=== PATIENT | female | born 1960 ===

== ENCOUNTER 2018-08-04 06:59 | Inpatient (IN) | payer BC, OTHER ==
[2018-08-04] MEDS ORDERED: Sodium Chloride 0.9% 1,000 ML IV STA (07:42)
--- NOTE | 2018-08-04 07:56 | ED PDOC ---
Arrival/HPI <James Giraldo - Last Filed: 08/04/18 08:48> - General Historian: Patient - History of Present Illness Narrative History of Present Illness (Text): Patient is a 58 yr old female with PMH HTN who presents today [place] [facility] having 3 large bloody BMs this morning. She states that she has had instances in the past where there was a small amount of blood on the tiolet paper but states that this time there was a large amount of blood and that the blood was the major component of the BM. She states that at the time of the BM she became dizzy/lightheaded and diaphoretic. She states that she has felt dizzy and slightly nauseous since that time but has had no emesis. She additionally states that she has been under an increased amount of stress lately due to her son's psychiatric care. she otherwise denies MENA, CP, SOB, abdominal pain, vomiting, pain with defecation, dysuria and exrtemity pain/weakness. Patient denies ever having had a colonoscopy. PCP: Dr. Ivory Burt 08/04/18 07:44 Time/Duration: Prior to Arrival, 1-3 hours Symptom Onset: Sudden Symptom Course: Unchanged Severity Level: Moderate <Mireille Whitley - Last Filed: 08/04/18 19:14> - General Chief Complaint: GI Problem Time Seen by Provider: 08/04/18 07:14 Past Medical History - Provider Review Nursing Documentation Reviewed: Yes - Infectious Disease Hx of Infectious Diseases: None - Reproductive Menopause: No - Cardiac Hx Cardiac Disorders: Yes Hx Hypertension: Yes - Pulmonary Hx Respiratory Disorders: No - Neurological Hx Neurological Disorder: No - HEENT Hx HEENT Disorder: No - Renal Hx Renal Disorder: No - Endocrine/Metabolic Hx Endocrine Disorders: No - Hematological/Oncological Hx Blood Disorders: No - Integumentary Hx Dermatological Disorder: No - Musculoskeletal/Rheumatological Hx Musculoskeletal Disorders: No - Gastrointestinal Hx Gastrointestinal Disorders: No - Genitourinary/Gynecological Hx Genitourinary Disorders: No - Psychiatric Hx Psychophysiologic Disorder: No Hx Substance Use: No - Surgical History Hx Section: Yes - Anesthesia Hx Anesthesia: Yes Hx Anesthesia Reactions: No Hx Malignant Hyperthermia: No <Mireille Whitley - Last Filed: 08/04/18 19:14> Family/Social History - Physician Review Nursing Documentation Reviewed: Yes Family/Social History: Unknown Family HX Smoking Status: Never Smoked Hx Alcohol Use: No Hx Substance Use: No <Mireille Whitley - Last Filed: 08/04/18 19:14> Allergies/Home Meds <James Giraldo - Last Filed: 08/04/18 08:48> <Mireille Whitley - Last Filed: 08/04/18 19:14> Allergies/Adverse Reactions: Allergies lactose Allergy (Verified 08/04/18 07:12) URTICARIA Penicillins Allergy (Verified 08/04/18 07:12) SWELLING Home Medications: Home Meds Medication Instructions Recorded Confirmed amLODIPine [Norvasc] 10 mg PO DAILY 08/04/18 08/04/18 Review of Systems - Physician Review All systems were reviewed & negative as marked: Yes - Review of Systems Constitutional: Fatigue. absent: Fevers Respiratory: absent: SOB, Cough Cardiovascular: Palpitations. absent: Chest Pain, Syncope Gastrointestinal: Stool Changes, Nausea, Hematochezia. absent: Abdominal Pain, Vomiting, Hematemesis Genitourinary Female: absent: Dysuria Musculoskeletal: absent: Arthralgias, Back Pain Skin: absent: Rash, Skin Lesions Neurological: Dizziness. absent: Headache, Focal Weakness, Speech Changes Endocrine: Diaphoresis <Mireille Whitley - Last Filed: 08/04/18 19:14> Physical Exam Vital Signs Temp Pulse Resp BP Pulse Ox 08/04/18 07:26 98.1 F 94 H 18 111/71 98 <James Giraldo - Last Filed: 08/04/18 08:48> Vital Signs Reviewed: Yes Vital Signs Temp Pulse Resp BP Pulse Ox 08/04/18 07:26 98.1 F 94 H 18 111/71 98 Temperature: Afebrile Blood Pressure: Normal Pulse: Tachycardic Respiratory Rate: Normal Appearance: Positive for: Well-Appearing, Non-Toxic, Comfortable Pain Distress: Mild Mental Status: Positive for: Alert and Oriented X 3 - Systems Exam Head: Present: Atraumatic, Normocephalic Extroacular Muscles: Present: EOMI Mouth: Present: Moist Mucous Membranes Neck: Present: Normal Range of Motion Respiratory/Chest: Present: Clear to Auscultation, Good Air Exchange. No: Accessory Muscle Use Cardiovascular: Present: Normal S1, S2, Tachycardic. No: Murmurs Abdomen: No: Tenderness, Distention, Peritoneal Signs, Guarding Rectal: Present: Occult Blood, Gross Blood, Normal Rectal Tone. No: Rectal Tenderness, Melena, Hemorrhoids, Fissures, Nodule/Mass/Lesions Upper Extremity: Present: Normal Inspection, NORMAL PULSES. No: Cyanosis Lower Extremity: Present: Normal Inspection, NORMAL PULSES. No: Edema, CALF TENDERNESS Neurological: Present: GCS=15, CN II-XII Intact, Speech Normal Skin: Present: Warm, Dry, Normal Color. No: Rashes, Diaphoretic, Pale Psychiatric: Present: Alert, Oriented x 3, Normal Insight, Normal Concentration <Mireille Whitley - Last Filed: 08/04/18 19:14> Medical Decision Making ED Course and Treatment: 08/04/18 08:48 Impression: 58 yr old female with PMH HTN who presents today to [facility] [place] having 3 large bloody BMs this morning In agreement with resident note which contains more details about the patient. Patient seen and evaluated with resident. Came up with plan and treatment together. Plan: -- Labs -- CT Abdomen and Pelvis -- EKG - Lab Interpretations Lab Results: Total Bilirubin 0.3 mg/dL (0.2-1.3) 08/04/18 07:50 AST 35 U/L (14-36) 08/04/18 07:50 ALT 35 U/L (7-56) 08/04/18 07:50 Alkaline Phosphatase 84 U/L (38-126) 08/04/18 07:50 Total Protein 7.7 g/dL (5.8-8.3) 08/04/18 07:50 Albumin 4.2 g/dL (3.0-4.8) 08/04/18 07:50 Globulin 3.5 gm/dL 08/04/18 07:50 Albumin/Globulin Ratio 1.2 (1.1-1.8) 08/04/18 07:50 - RAD Interpretation Radiology Orders: 08/04/18 08:33 ABD PELVIS PO & IV CONTRAST [CT] Stat - EKG Interpretation EKG Interpretation (Text): 08/04/18 08:37 0832: nsr at 87 bpm, nml qrs, nml axis, no acute sttw abn Interpreted by ED Physician: Yes - Medication Orders Current Medication Orders: Sodium Chloride (Sodium Chloride 0.9%) 1,000 mls @ 999 mls/hr IV .Q1H1M STA Stop: 08/04/18 08:42 Last Admin: 08/04/18 07:58 Dose: 999 mls/hr eMAR Start Stop Document 08/04/18 07:58 KORIN (Rec: 08/04/18 07:59 KORIN [id number]) Intravenous Solution Start Date 08/04/18 Start Time 07:58 End Date 08/04/18 End time 08:58 Total Infusion Time 60 <James Giraldo - Last Filed: 08/04/18 08:48> ED Course and Treatment: Impression: 58 yr old female with PMH HTN with new onset Rectal bleed (hemeoccult positive) Plan: CBC CMP IVF bolus 1L reassess and dispo 08/04/18 08:[address] Chance who agrees to evaluate the patient and admit to the hospital for further care. he requested Dr. Espinal for ID, Dr. Saha for GI and Dr. Villalba for surgical consult As patient has PCN allergy she has been placed on aztreonam, flagyl and vancomycin 08/04/18 11:55 - Medication Orders Current Medication Orders: Sodium Chloride (Sodium Chloride 0.9%) 1,000 mls @ 999 mls/hr IV .Q1H1M STA Stop: 08/04/18 08:42 <Mireille Whitley - Last Filed: 08/04/18 19:14> - PA / INSURANCE FOLLOW UP REP / Resident Statement MD/DO has reviewed & agrees with the documentation as recorded. - Scribe Statement The provider has reviewed the documentation as recorded by the Scribe Erich Beth All medical record entries made by the Scribe were at my direction and personally dictated by me. I have reviewed the chart and agree that the record accurately reflects my personal performance of the history, physical exam, medical decision making, and the department course for this patient. I have also personally directed, reviewed, and agree with the discharge instructions and disposition. <James Giraldo - Last Filed: 08/04/18 08:48> Disposition/Present on Arrival <James Giraldo - Last Filed: 08/04/18 08:48> - Present on Arrival Any Indicators Present on Arrival: No History of DVT/PE: No History of Uncontrolled Diabetes: No Urinary Catheter: No History of Decub. Ulcer: No History Surgical Site Infection Following: None - Disposition Have Diagnosis and Disposition been Completed?: Yes Disposition Time: 11:55 Patient Plan: Admission <Mireille Whitley - Last Filed: 08/04/18 19:14> - Disposition Diagnosis: Diverticulitis large intestine, GI bleed Disposition: HOSPITALIZED Condition: STABLE
[2018-08-04 08:03] LABS: BASO # 0.04 K/mm3 (0.0-2.0); BASO % 0.3 % (0.0-3.0); EOS # 0.1 (0.0-0.7); EOS % 0.5 % (1.5-5.0); HEMOGLOBIN 11.1 g/dL (12.0-16.0); LYMPH # 2.4 (1.2-3.4); LYMPH % 16.6 % (22.0-35.0); MEAN CELL VOLUME 77.7 fl (80.0-105.0); MEAN CORPUSCULAR HEMOGLOBIN 25.2 pg (25.0-35.0); MEAN CORPUSCULAR HGB CONC 32.5 g/dl (31.0-37.0); MEAN PLATELET VOLUME 10.3 fl (7.0-11.0); MONO # 0.5 (0.1-0.6); MONO % 3.3 % (1.0-6.0); RBC 4.4 10^6/uL (3.5-6.1); RED CELL DISTRIBUTION WIDTH 14.2 % (11.5-14.5); WHITE BLOOD COUNT 14.7 10^3/uL (4.5-11.0)
[2018-08-04 08:24] LABS: ALB/GLOB RATIO 1.2 (1.1-1.8); ALBUMIN 4.2 g/dL (3.0-4.8); ALT/SGPT 35 U/L (7-56); AST/SGOT 35 U/L (14-36); BLOOD UREA NITROGEN 11 mg/dL (7-21); CALCIUM 8.9 mg/dL (8.4-10.5); GFR NON-AFRICAN AMERICAN > 60
[2018-08-04] MEDS ORDERED: Iohexol 350 MG/100 ML VIAL ONE (08:51)
[2018-08-04] MEDS ORDERED: Iohexol 240 (50 ml) ONE (08:51)
[2018-08-04 09:13] LABS: INR 1.14; PARTIAL THROMBOPLASTIN TIME 35.6 Seconds (26.9-38.3); PROTHROMBIN TIME 12.9 SECONDS (9.4-12.5)
--- NOTE | 2018-08-04 11:47 | CT ---
Date of service: 08/04/2018 PROCEDURE: CT Abdomen and Pelvis with contrast HISTORY: r/o dicerticulitis, rectal bleeding COMPARISON: Comparison is made with the previous ultrasound dated 09/06/2015 TECHNIQUE: Contrast dose: 96 mL of Omnipaque 240 was injected intravenously. Axial and reformatted coronal and sagittal CT images of the abdomen and pelvis were obtained after IV and oral contrast administration Radiation dose: Total exam DLP = 266.52 mGy-cm. This CT exam was performed using one or more of the following dose reduction techniques: Automated exposure control, adjustment of the mA and/or kV according to patient size, and/or use of iterative reconstruction technique. FINDINGS: LOWER THORAX: 8 millimeter calcified nodule at the right lung lower lobe noted likely calcified granuloma. No evidence of pneumonia or pleural effusion. LIVER: Slightly heterogeneous enhancement of the liver noted. No evidence of enhancing mass lesion. The portal vein is patent. GALLBLADDER AND BILE DUCTS: The gallbladder is mildly distended demonstrate mild diffuse wall thickening. PANCREAS: Unremarkable. No gross lesion or ductal dilatation. SPLEEN: Unremarkable. ADRENALS: Unremarkable. No mass. KIDNEYS AND URETERS: Unremarkable. No hydronephrosis. No solid mass. VASCULATURE: Unremarkable. No aortic aneurysm. Small foci of atherosclerotic calcification noted in the abdominal aorta. BOWEL: There is focal thickening in the proximal ascending colon surrounding with inflammatory changes. Findings may represent diverticulitis versus focal colitis or neoplasm with microperforation. Suspicious for descending and sigmoid colon wall thickening that likely represent colitis. APPENDIX: There is no evidence of appendicitis. PERITONEUM: Unremarkable. No free fluid. No free air. LYMPH NODES: Unremarkable. No enlarged lymph nodes. BLADDER: Unremarkable. REPRODUCTIVE: The uterus is slightly prominent in size demonstrate mild heterogeneous enhancement. There is heterogeneous slightly high attenuation lesion at the left adnexa measures 2 centimeter. BONES: No acute fracture. OTHER FINDINGS: None. IMPRESSION: Focal wall thickening in the proximal ascending colon surrounding with heterogeneous mesenteric stranding and inflammatory changes. The differential consideration includes diverticulitis versus colitis or neoplasm with micro perforation. Further evaluation and follow-up reassessment is recommended. Left colon wall thickening consistent with colitis. High attenuation 2 centimeter lesion in the left adnexa. Follow-up non emergent ultrasound of the pelvis is suggested to exclude solid adnexal neoplasm.
[2018-08-04] MEDS ORDERED: metroNIDAZOLE IV 500 mg/100 ml 500 MG/100 ML BAG IVPB STA (11:54)
[2018-08-04] MEDS ORDERED: Vancomycin 500 mg Inj IVPB STA (11:58)
[2018-08-04] MEDS ORDERED: Aztreonam 2 Gm in NS 100mL 100 ML IVPB STA (12:00)
[2018-08-04] MEDS ORDERED: Sodium Chloride 0.9% 1,000 ML IV SCH (12:15)
[2018-08-04] MEDS ORDERED: Vancomycin 1gm in NS 250ml 1 GM/250 ML BAG IVPB ONE (12:15)
[2018-08-04 15:20] VITALS: BMI 24.0
--- NOTE | 2018-08-04 16:28 | CON ---
DATE OF CONSULTATION: 08/04/2018 The patient is seen earlier in the emergency room and will be transferred to Room 573, Bed 2. CHIEF COMPLAINT: Bright red blood per rectum x1 day duration. HISTORY OF PRESENT ILLNESS: This is a 58-year-old female with a history of hypertension, who was admitted with bright red blood per rectum and found to have leukocytosis. Infectious disease consultation requested. The patient has mild abdominal discomfort and nausea, but no vomiting, no fevers, and no chills. She did have an episode of chills earlier. No dysuria or frequency. No cough, no headaches, no back pain, no rash, no joint pain. PAST MEDICAL HISTORY: Significant for hypertension. PAST SURGICAL HISTORY: Significant for . MEDICATIONS AT HOME: Include the patient to be on Norvasc. ALLERGIES: THE PATIENT IS ALLERGIC TO PENICILLIN. SHE IS NOT QUITE SURE WHAT HAPPENED. SHE THINKS SHE MAY HAVE HAD FELT PALPITATIONS, QUESTIONABLE RASH. REVIEW OF SYSTEMS: A 12-point review of systems is performed. PHYSICAL EXAMINATION: GENERAL: She is in bed. VITAL SIGNS: Temperature of 98.8, heart rate is 94, respiratory rate of 18, blood pressure is 111/70. HEENT: Unremarkable. NECK: Supple. LUNGS: Have decreased breath sounds. HEART: Normal S1 and S2. ABDOMEN: Soft, nontender. No rebound or guarding. LABORATORY EXAMINATION: White count of 14,000, hemoglobin 11, MCV is low at 77, and coagulation is noted. Chemistries reveal a BUN of 11 and creatinine of 0.6. Microbiology is pending. The patient had a CAT scan, which showed possible diverticulitis versus colitis, inflammatory findings. The patient had an EKG, the results are not available. ASSESSMENT/PLAN: The patient is a 58-year-old female with tachycardia, leukocytosis, bright red blood per rectum, CT finding with colitis and/or diverticulitis. #1 is sepsis with diverticulitis versus colitis. We will treat the patient with vanco, Azactam, and Flagyl. The patient has a questionable allergy to penicillin. We will check on the cultures. We will order an HIV because of her age. We will follow with you. Case discussed with PMD. Chet Espinal MD [facility] # [id number]
[2018-08-04] MEDS: Vancomycin 1gm in NS 250ml 1 GM/250 ML BAG IVPB SCH (16:41)
[2018-08-04] MEDS: Sodium Chloride 0.9% 1,000 ML IV SCH (16:49)
--- NOTE | 2018-08-04 18:07 | CP.PCM.CON ---
History of Present Illness - History of Present Illness History of Present Illness: Surgery Consult for colitis, diverticulitis Patient is a 58 yr old female with PMH HTN who presents today to [facility] [place] after having 3 large bloody BMs this morning. She states that she has had instances in the past where there was a small amount of blood on the toilet paper but states that this time there was a large amount of blood and that the blood was the major component of the BM. There was blood in the toilet bowl. She states that at the time of the BM she became dizzy/lightheaded and diaphoretic. She states that she has felt dizzy and slightly nauseous since that time but has had no emesis. She additionally states that she has been under an increased amount of stress lately due to her son's psychiatric care. she otherwise denies MENA, CP, SOB, abdominal pain, vomiting, pain with defecation, dysuria and exrtemity pain/weakness. Patient denies ever having had a colonoscopy. Pt also reports R side abd pain. This is the first time having these sxs. 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 Review of Systems - Review of Systems Review of Systems: See HP I Past Patient History - Infectious Disease Hx of Infectious Diseases: None - Past Social History Smoking Status: Former Smoker - CARDIAC Hx Cardiac Disorders: Yes Hx Hypertension: Yes - PULMONARY Hx Respiratory Disorders: No - NEUROLOGICAL Hx Neurological Disorder: No - HEENT Hx HEENT Problems: No - RENAL Hx Chronic Kidney Disease: No - ENDOCRINE/METABOLIC Hx Endocrine Disorders: No - HEMATOLOGICAL/ONCOLOGICAL Hx Blood Disorders: No - INTEGUMENTARY Hx Dermatological Problems: No - MUSCULOSKELETAL/RHEUMATOLOGICAL Hx Falls: No - GASTROINTESTINAL Hx Gastrointestinal Disorders: No - GENITOURINARY/GYNECOLOGICAL Hx Genitourinary Disorders: No - PSYCHIATRIC Hx Psychophysiologic Disorder: No - SURGICAL HISTORY Hx Surgeries: Yes - ANESTHESIA Hx Anesthesia: Yes Hx Anesthesia Reactions: No Hx Malignant Hyperthermia: No Meds Allergies/Adverse Reactions: Allergies Allergy/AdvReac Type Severity Reaction Status Date / Time lactose Allergy URTICARIA Verified 08/04/18 07:12 Penicillins Allergy SWELLING Verified 08/04/18 07:12 - Medications Medications: Current Medications Sodium Chloride (Sodium Chloride 0.9%) 1,000 mls @ 80 mls/hr IV .[id number] [facility] Last Admin: 08/04/18 16:49 Dose: 80 mls/hr Aztreonam (Azactam 1 Gm) 100 mls @ 100 mls/hr IVPB Q8 AUBREY; Protocol Stop: 08/09/18 22:01 Metronidazole (Flagyl) 500 mg in 100 mls @ 100 mls/hr IVPB Q8 AUBREY; Protocol Stop: 08/13/18 22:01 Vancomycin HCl (Vancomycin 1gm) 1 gm in 250 mls @ 167 mls/hr IVPB Q12H AUBREY; Protocol Stop: 08/13/18 15:16 Last Admin: 08/04/18 16:41 Dose: 167 mls/hr Pantoprazole Sodium (Protonix Inj) 40 mg IVP Q12 AUBREY Physical Exam - Constitutional Appears: No Acute Distress - Head Exam Head Exam: ATRAUMATIC, NORMAL INSPECTION, NORMOCEPHALIC - Eye Exam Eye Exam: EOMI, Normal appearance, PERRL Pupil Exam: NORMAL ACCOMODATION, PERRL - ENT Exam ENT Exam: Mucous Membranes Moist, Normal Exam - Neck Exam Neck exam: Positive for: Normal Inspection - Respiratory Exam Respiratory Exam: NORMAL BREATHING PATTERN - Cardiovascular Exam Cardiovascular Exam: REGULAR RHYTHM - GI/Abdominal Exam GI & Abdominal Exam: Soft, Tenderness. absent: Distended, Firm, Guarding, Hernia, Rigid Additional comments: R abd ttp - Extremities Exam Extremities exam: Positive for: normal inspection - Back Exam Back exam: NORMAL INSPECTION - Neurological Exam Neurological exam: Alert, CN II-XII Intact, Normal Gait, Oriented x3, Reflexes Normal - Psychiatric Exam Psychiatric exam: Normal Affect, Normal Mood - Skin Skin Exam: Dry, Intact, Normal Color, Warm Results - Vital Signs Recent Vital Signs: Last Vital Signs Temp 98.8 F 08/04/18 14:30 Pulse 80 08/04/18 14:30 Resp 18 08/04/18 15:20 BP 124/76 08/04/18 14:30 Pulse Ox 99 08/04/18 14:30 - Labs Result Diagrams: 08/04/18 07:50 08/04/18 07:50 Labs: Laboratory Results - last 24 hr 08/04/18 08/04/18 08/04/18 07:50 07:50 07:50 WBC 14.7 H RBC 4.40 Hgb 11.1 L Hct 34.2 L MCV 77.7 L MCH 25.2 MCHC 32.5 RDW 14.2 Plt Count 348 MPV 10.3 Neut % (Auto) 79.3 H Lymph % (Auto) 16.6 L [place] % (Auto) 3.3 Eos % (Auto) 0.5 L Baso % (Auto) 0.3 Lymph # (Auto) 2.4 [place] # (Auto) 0.5 Eos # (Auto) 0.1 Baso # (Auto) 0.04 Absolute Neuts (auto) 11.64 H PT 12.9 H INR 1.14 APTT 35.6 Sodium 137 Potassium 3.5 L Chloride 101 Carbon Dioxide 27 Anion Gap 13 BUN 11 Creatinine 0.6 L Est GFR ( Amer) > 60 Est GFR (Non-Af Amer) > 60 Random Glucose 109 Calcium 8.9 Phosphorus 4.0 Magnesium 2.1 Total Bilirubin 0.3 AST 35 ALT 35 Alkaline Phosphatase 84 Total Protein 7.7 Albumin 4.2 Globulin 3.5 Albumin/Globulin Ratio 1.2 Blood Type Antibody Screen BBK History Checked 08/04/18 08:15 WBC RBC Hgb Hct MCV MCH MCHC RDW Plt Count MPV Neut % (Auto) Lymph % (Auto) [place] % (Auto) Eos % (Auto) Baso % (Auto) Lymph # (Auto) [place] # (Auto) Eos # (Auto) Baso # (Auto) Absolute Neuts (auto) PT INR APTT Sodium Potassium Chloride Carbon Dioxide Anion Gap BUN Creatinine Est GFR ( Amer) Est GFR (Non-Af Amer) Random Glucose Calcium Phosphorus Magnesium Total Bilirubin AST ALT Alkaline Phosphatase Total Protein Albumin Globulin Albumin/Globulin Ratio Blood Type A POSITIVE Antibody Screen Negative BBK History Checked Patient has bt Assessment & Plan - Assessment and Plan (Free Text) Assessment: Colitis v diverticulitis Leukocytosis CT: R colon colitis w diverticulosis -NPO -IVF-PTX -ABX -Pain control Pt seen w and case DW Dr. Villalba
[2018-08-04] MEDS ORDERED: metroNIDAZOLE IV 500 mg/100 ml 500 MG/100 ML BAG IVPB SCH (22:00)
[2018-08-04] MEDS ORDERED: Ciprofloxacin 200mg/100ml D5W 100 ML IVPB SCH (22:00)
--- NOTE | 2018-08-04 22:51 | HP ---
DATE OF EXAM: 08/04/2018 HISTORY OF PRESENT ILLNESS: I saw her in the emergency room. She is a 58-year-old female who presents with three large bloody bowel movements. She had in the past with a small blood on toilet paper. She became a little dizzy, lightheaded, sweaty, nauseous, but not throwing up. Increase in stress lately to her son's psychiatric care. She has been eating a lot to spicy foods also lately. Never had a colonoscopy in the past. PAST MEDICAL HISTORY: Hypertension, on Norvasc. Her primary care doctor would come to the hospital. She has had a in the past. FAMILY HISTORY: Unknown family history. SOCIAL HISTORY: No smoking. No drinking. No drugs. ALLERGIES: LACTULOSE AND PENICILLIN. MEDICATIONS: She is on amlodipine 10 mg a day, her blood pressure is low. I am not going to start her up on it today, maybe tomorrow. REVIEW OF SYSTEMS: She is tired. No shortness of breath or cough. No chest pain. There are palpitations. Stool changes. She is nauseous, hematochezia, blood in the stool, not throwing up. No problems urinating. No back pains. No skin lesions or rashes that she knows of. PHYSICAL EXAMINATION: GENERAL: She is little bit dizzy and lightheaded. She is sweaty. She is alert and oriented x3, little uncomfortable, worried, well appearing. VITAL SIGNS: 98.1 temperature, 94 pulse, 18 respiratory rate, 111/71 blood pressure, 98% O2 sat on room air. HEENT: Head: Atraumatic, normocephalic. Extraocular muscles are intact. Pupils equal, react to light and accommodation. Throat is moist. NECK: Supple. HEART: Regular rate. Normal S1, S2. LUNGS: Decreased breath sounds bilaterally, but clear to auscultation. No wheezes, no rhonchi, no rales. ABDOMEN: There is no tenderness. High-pitched bowel sounds. No guarding, no rebound, no CVA tenderness. She has had some lower abdominal tenderness, not now. Has occult blood, was gross blood in the rectum in the ER. EXTREMITIES: No edema or calf tenderness of extremities. NEUROLOGIC: GCS is 15. Cranial nerves II-XII grossly intact. Alert and oriented x3. SKIN: Warm and dry. No apparent rashes or ulcers. LYMPHS: No palpable appreciable lymphadenopathy in the cervical area. LABORATORY DATA: She had 137 sodium and potassium 3.5, we gave her K rider. BUN 11, creatinine 0.6, GFR greater than 60, sugar is 109, calcium is 8.9, phosphorus 4, magnesium 2.1, total bili is 0.3. AST is 35, ALT is 35, alk phos 84, total protein 7.7, albumin is 4.2, and 1.14 INR. White count 14.7, 11.1 hemoglobin, 34.2 hematocrit with 77.7 MCV and 348 platelets. She has a CT scan of the abdomen and pelvis which showed focal wall thickening in the proximal ascending colon surrounding with heterogenous mesenteric stranding with inflammatory changes. The differential considering is diverticulitis versus colitis or neoplasm with microperforation. Left colon wall thickening consistent with colitis, possible left adnexal mass. I will get ultrasound. She will have consults with GI, Surgery and Infectious Disease. She will be on antibiotics. We will watch her labs. She will be n.p.o., IV fluids, IV antibiotics. We will continue aggressive treatment and care on Christy Matias. Tamir Chance DO MTDJosiah
--- NOTE | 2018-08-04 22:55 | CARD ---
APPROVED REPORT Date of service: 08/04/2018 EKG Measurement Heart [id number] <Conclusion> Normal sinus rhythm Nonspecific T wave abnormality Abnormal ECG
[2018-08-04] MEDS: metroNIDAZOLE IV 500 mg/100 ml 500 MG/100 ML BAG IVPB SCH (23:13)
[2018-08-05] MEDS: Aztreonam 1 Gm in NS 100mL 100 ML IVPB SCH ×4 (00:55→21:17)
[2018-08-05] MEDS: Vancomycin 1gm in NS 250ml 1 GM/250 ML BAG IVPB SCH ×2 (03:14→17:57)
[2018-08-05] MEDS: metroNIDAZOLE IV 500 mg/100 ml 500 MG/100 ML BAG IVPB SCH ×3 (05:09→21:17)
--- NOTE | 2018-08-05 07:24 | CP.PCM.CON ---
<Pepe Pan - Last Filed: 08/05/18 09:36> History of Present Illness - History of Present Illness History of Present Illness: PGY-4 GI Fellow Consult Note Pt is a 58 yo Female with HTN presenting with complaint of bright red blood per rectum. She states she was in her normal state of health in the the AM of 08/04 when she went to defecate but loose brown stool with bright red blood came out. She reports 3 episodes of elizabeth blood. She states that she previously would have some small amounts of blood when she would have a hard time defecating, but states that this was much more than she has ever had before. She reports some associated nausea, lightheadedness, dizziness. She reports some bloating/gas discomfort which is not unusual for her; denied any new significant abd pain. She denied any F/C, syncope, CP, SOB, emesis, dysphagia, weight loss nor family h/o CRC. She denied any change in diet, raw meat consumption, travel or antibiotic exposure. She does report some increased stress in her life related to her son who is working though mental illness. She states that she had EGD some 10+ years ago for abd pain eval which was normal per her report; no prior Colonoscopy. 12 point ROS negative other than stated above MHx: HTN SurgHx: C section, lap co pilot procedure Meds: Reviewed in chart FamHx: Sister with cervical CA; denied CRC/GI problems SocHx: Denied x3 All: Lactose, PCN - rash Past Patient History - Infectious Disease Hx of Infectious Diseases: None - Past Social History Smoking Status: Never Smoked - CARDIAC Hx Cardiac Disorders: Yes Hx Hypertension: Yes - PULMONARY Hx Respiratory Disorders: No - NEUROLOGICAL Hx Neurological Disorder: No - HEENT Hx HEENT Problems: No - RENAL Hx Chronic Kidney Disease: No - ENDOCRINE/METABOLIC Hx Endocrine Disorders: No - HEMATOLOGICAL/ONCOLOGICAL Hx Blood Disorders: No - INTEGUMENTARY Hx Dermatological Problems: No - MUSCULOSKELETAL/RHEUMATOLOGICAL Hx Musculoskeletal Disorders: No - GASTROINTESTINAL Hx Gastrointestinal Disorders: No - GENITOURINARY/GYNECOLOGICAL Hx Genitourinary Disorders: No - PSYCHIATRIC Hx Psychophysiologic Disorder: No Hx Substance Use: No - SURGICAL HISTORY Hx Section: Yes - ANESTHESIA Hx Anesthesia: Yes Hx Anesthesia Reactions: No Hx Malignant Hyperthermia: No Meds Allergies/Adverse Reactions: Allergies Allergy/AdvReac Type Severity Reaction Status Date / Time lactose Allergy URTICARIA Verified 08/04/18 07:12 Penicillins Allergy SWELLING Verified 08/04/18 07:12 - Medications Medications: Current Medications Sodium Chloride (Sodium Chloride 0.9%) 1,000 mls @ 80 mls/hr IV .[id number] [facility] Last Admin: 08/04/18 16:49 Dose: 80 mls/hr Aztreonam (Azactam 1 Gm) 100 mls @ 100 mls/hr IVPB Q8 [facility]; Protocol Stop: 08/09/18 22:01 Last Admin: 08/05/18 06:17 Dose: 100 mls/hr Metronidazole (Flagyl) 500 mg in 100 mls @ 100 mls/hr IVPB Q8 [facility]; Protocol Stop: 08/13/18 22:01 Last Admin: 08/05/18 05:09 Dose: 100 mls/hr Vancomycin HCl (Vancomycin 1gm) 1 gm in 250 mls @ 167 mls/hr IVPB Q12H [facility]; Protocol Stop: 08/13/18 15:16 Last Admin: 08/05/18 03:14 Dose: 167 mls/hr Pantoprazole Sodium (Protonix Inj) 40 mg IVP Q12 [facility] Last Admin: 08/04/18 23:42 Dose: 40 mg Physical Exam - Constitutional Appears: Well, No Acute Distress - Head Exam Head Exam: ATRAUMATIC, NORMAL INSPECTION - Eye Exam Eye Exam: EOMI. absent: Scleral icterus - ENT Exam ENT Exam: Mucous Membranes Moist. absent: Mucous Membranes Dry - Respiratory Exam Respiratory Exam: Clear to Auscultation Bilateral, NORMAL BREATHING PATTERN. absent: Accessory Muscle Use, Respiratory Distress - Cardiovascular Exam Cardiovascular Exam: REGULAR RHYTHM, RRR - GI/Abdominal Exam GI & Abdominal Exam: Normal Bowel Sounds, Soft. absent: Bruit, Diminished Bowel Sounds, Distended, Firm, Guarding, Hernia, Mass, Organomegaly, Pulsatile Mass, Tenderness - Rectal Exam Rectal Exam: NORMAL INSPECTION Additional comments: scant amount of brown stool on ANITA, no obvious masses - Extremities Exam Extremities exam: Positive for: normal inspection. Negative for: pedal edema - Neurological Exam Neurological exam: Alert, CN II-XII Intact - Psychiatric Exam Psychiatric exam: Normal Affect, Normal Mood - Skin Skin Exam: Normal Color, Warm Results - Vital Signs Recent Vital Signs: Last Vital Signs Temp 98.6 F 08/04/18 20:45 Pulse 102 H 08/04/18 20:45 Resp 18 08/04/18 20:45 BP 122/69 08/04/18 20:45 Pulse Ox 96 08/04/18 20:45 - Labs Result Diagrams: 08/05/18 07:20 08/05/18 07:20 Labs: Laboratory Results - last 24 hr 08/04/18 08/04/18 08/04/18 07:50 07:50 07:50 WBC 14.7 H RBC 4.40 Hgb 11.1 L Hct 34.2 L MCV 77.7 L MCH 25.2 MCHC 32.5 RDW 14.2 Plt Count 348 MPV 10.3 Neut % (Auto) 79.3 H Lymph % (Auto) 16.6 L [place] % (Auto) 3.3 Eos % (Auto) 0.5 L Baso % (Auto) 0.3 Lymph # (Auto) 2.4 [place] # (Auto) 0.5 Eos # (Auto) 0.1 Baso # (Auto) 0.04 Absolute Neuts (auto) 11.64 H PT 12.9 H INR 1.14 APTT 35.6 Sodium 137 Potassium 3.5 L Chloride 101 Carbon Dioxide 27 Anion Gap 13 BUN 11 Creatinine 0.6 L Est GFR ( Amer) > 60 Est GFR (Non-Af Amer) > 60 Random Glucose 109 Calcium 8.9 Phosphorus 4.0 Magnesium 2.1 Total Bilirubin 0.3 AST 35 ALT 35 Alkaline Phosphatase 84 Total Protein 7.7 Albumin 4.2 Globulin 3.5 Albumin/Globulin Ratio 1.2 Blood Type Antibody Screen BBK History Checked 08/04/18 08:15 WBC RBC Hgb Hct MCV MCH MCHC RDW Plt Count MPV Neut % (Auto) Lymph % (Auto) [place] % (Auto) Eos % (Auto) Baso % (Auto) Lymph # (Auto) [place] # (Auto) Eos # (Auto) Baso # (Auto) Absolute Neuts (auto) PT INR APTT Sodium Potassium Chloride Carbon Dioxide Anion Gap BUN Creatinine Est GFR ( Amer) Est GFR (Non-Af Amer) Random Glucose Calcium Phosphorus Magnesium Total Bilirubin AST ALT Alkaline Phosphatase Total Protein Albumin Globulin Albumin/Globulin Ratio Blood Type A POSITIVE Antibody Screen Negative BBK History Checked Patient has bt Assessment & Plan - Assessment and Plan (Free Text) Assessment: 58 yo F presenting with hematochezia. # Hematochezia: Relatively painless. Signs of Colitis on CT raising concerns for infectious/inflammatory etiology. Also with diverticulosis, possible diverticulitis with microperforations. Repeat Hgb this AM decreased from baseline, but suspect dilution component as well as some blood loss. # Endos: EGD some 10+ years ago for abd pain eval which was normal per her report; no prior Colonoscopy. Plan: - Clear Liq Diet (Vegetarian) - Abx per Primary/ID - Gen Surg consulted - PPI to PO QD - Check Cdiff and Stool Cx - Will need Colonoscopy in 6-8 weeks Pt seen and examined with Dr. Saha; please see attestation for further recs/ch angdee <Ezra Saha Y - Last Filed: 08/05/18 10:42> Meds - Medications Medications: Current Medications Sodium Chloride (Sodium Chloride 0.9%) 1,000 mls @ 80 mls/hr IV .[id number] [facility] Last Admin: 08/04/18 16:49 Dose: 80 mls/hr Aztreonam (Azactam 1 Gm) 100 mls @ 100 mls/hr IVPB Q8 [facility]; Protocol Stop: 08/09/18 22:01 Last Admin: 08/05/18 06:17 Dose: 100 mls/hr Metronidazole (Flagyl) 500 mg in 100 mls @ 100 mls/hr IVPB Q8 [facility]; Protocol Stop: 08/13/18 22:01 Last Admin: 08/05/18 05:09 Dose: 100 mls/hr Vancomycin HCl (Vancomycin 1gm) 1 gm in 250 mls @ 167 mls/hr IVPB Q12H [facility]; Protocol Stop: 08/13/18 15:16 Last Admin: 08/05/18 03:14 Dose: 167 mls/hr Potassium Chloride (Potassium Chloride 10 Meq/100 Ml) 10 meq in 100 mls @ 50 mls/hr IVPB ONCE ONE Stop: 08/05/18 11:22 Pantoprazole Sodium (Protonix Ec Tab) 40 mg PO 0600 [facility] Results - Vital Signs Recent Vital Signs: Last Vital Signs Temp 98.4 F 08/05/18 06:00 Pulse 97 H 08/05/18 06:00 Resp 20 08/05/18 06:00 BP 118/64 08/05/18 06:00 Pulse Ox 99 08/05/18 06:00 - Labs Result Diagrams: 08/05/18 07:20 08/05/18 07:20 Labs: Laboratory Results - last 24 hr 08/05/18 08/05/18 07:20 07:20 WBC 7.3 D RBC 3.39 L Hgb 8.6 L D Hct 26.4 L MCV 77.9 L MCH 25.4 MCHC 32.6 RDW 14.4 Plt Count 296 MPV 9.8 Sodium 140 Potassium 3.4 L Chloride 108 H Carbon Dioxide 27 Anion Gap 9 L BUN 11 Creatinine 0.6 L Est GFR ( Amer) > 60 Est GFR (Non-Af Amer) > 60 Random Glucose 80 Calcium 8.3 L Total Bilirubin 0.6 AST 24 ALT 39 Alkaline Phosphatase 68 Total Protein 6.3 Albumin 3.5 Globulin 2.8 Albumin/Globulin Ratio 1.2 Attending/Attestation - Attestation I have personally seen and examined this patient.: Yes I have fully participated in the care of the patient.: Yes I have reviewed all pertinent clinical information: Yes Notes (Text): 08/05/18 10:38 I have seen and examined patient with GI fellow. Agree with above documentation with the following additions. In brief, this is a 58 year old female with history of HTN who presents to hospital with complaint of abdominal pain and rectal bleeding which began yesterday. Prior to this she was in usual state of health. She describes right sided abdominal discomfort with approximately 3 episodes of hematochezia. She denies associated nausea, vomiting, fever/chills, weight loss, similar prior episodes, recent antibiotic use, sick contacts, unusual food consumption, travel, or change in bowel habits. She had an EGD over 10 years ago, no prior colonoscopy. HTN Abdominal pain Rectal bleeding CT imaging reviewed by me showing diverticulosis, right sided colon wall thickening with yonathan-colonic inflammatory stranding, ?foci of free air/microperforation - Clear liquid diet as tolerated - Continue with antibiotic therapy - Obtain stool studies (culture, c-difficile) - Pain control, IVF hydration therapy - Patient would benefit from outpatient screening colonoscopy 6-8 weeks following resolution of acute symptoms. Will continue to monitor patient cl inical course.
[2018-08-05 07:45] LABS: MEAN CELL VOLUME 77.9 fl (80.0-105.0); MEAN CORPUSCULAR HEMOGLOBIN 25.4 pg (25.0-35.0); MEAN CORPUSCULAR HGB CONC 32.6 g/dl (31.0-37.0); MEAN PLATELET VOLUME 9.8 fl (7.0-11.0); RBC 3.39 10^6/uL (3.5-6.1); RED CELL DISTRIBUTION WIDTH 14.4 % (11.5-14.5); WHITE BLOOD COUNT 7.3 10^3/uL (4.5-11.0)
[2018-08-05 07:46] LABS: HEMOGLOBIN 8.6 g/dL (12.0-16.0)
[2018-08-05 08:21] LABS: ALB/GLOB RATIO 1.2 (1.1-1.8); ALBUMIN 3.5 g/dL (3.0-4.8); ALT/SGPT 39 U/L (7-56); AST/SGOT 24 U/L (14-36); BLOOD UREA NITROGEN 11 mg/dL (7-21); CALCIUM 8.3 mg/dL (8.4-10.5); GFR NON-AFRICAN AMERICAN > 60
--- NOTE | 2018-08-05 10:46 | PN ---
DATE: 08/05/2018 SUBJECTIVE: I saw her in her room resting comfortably. She slept well. She is feeling better. She is on aztreonam by Infectious Disease, also Flagyl, Protonix IV, IV fluids and vancomycin IV. PHYSICAL EXAMINATION: VITAL SIGNS: Temperature 98.6, 102 pulse, 122/69 blood pressure, 18 respiratory rate, 96% O2 sat on room air. GENERAL: She looks good, comfortable. HEAD: Atraumatic, normocephalic. HEART: Regular rate. LUNGS: Decreased breath sounds. ABDOMEN: Soft. Positive bowel sounds. No guarding, going to the bathroom had a bowel movement, was normal. EXTREMITIES: No edema. LABORATORY DATA: She has a 140 sodium, potassium 3.4, gave her K-rider. BUN 11, creatinine 0.6, GFR is greater than 60, sugar is 80, calcium is 8.3, total bili is 0.6, AST is 24, ALT is 39, alk phos 68, total protein 6.3, albumin 3.5. INR is 1.14, 7.3 white count, much better. She came in was 14.7, down to 7.3 as well as a hemoglobin. Hemoglobin dropped to 8.6 from 11.1, hematocrit 26.4, platelets of 296. PLAN: She is being seen by Surgery, Infectious Disease and GI. If the hemoglobin drops again, I will transfuse her. She came in with a diverticulitis with possible perforations, hematochezia, abdominal pain as per Infectious Disease and GI. We will check her labs tomorrow. She is not out of the shultz yet and I want to talk to GI about what they think about the CAT scan. Tamir Chance DO
--- NOTE | 2018-08-05 12:04 | US ---
Date of service: 08/05/2018 HISTORY: mass COMPARISON: None. TECHNIQUE: Sonographic evaluation of the abdomen. FINDINGS: LIVER: Measures 12.6 cm. Increased echogenicity of the liver parenchyma. No mass. No intrahepatic bile duct dilatation. GALLBLADDER: Unremarkable. No gallstones. COMMON BILE DUCT: Measures 2.5 mm. No stones. No dilatation. PANCREAS: Pancreas not reliably evaluated due to extensive overlying bowel or stomach gas. RIGHT KIDNEY: Measures 9.2cm. Normal echogenicity. No calculus, mass, or hydronephrosis. LEFT KIDNEY: Measures 9.6cm. Normal echogenicity. No calculus, mass, or hydronephrosis. SPLEEN: Normal in size and contour, measuring 6.6 cm. No mass. AORTA: No aneurysmal dilatation. IVC: Unremarkable. OTHER FINDINGS: None. IMPRESSION: Pancreas is obscured by overlying stomach or bowel gas with remainder of the examination appearing remarkable for hepatic steatosis or other infiltrative process.
--- NOTE | 2018-08-05 12:28 | CP.PCM.PN ---
Subjective - Date & Time of Evaluation Date of Evaluation: 08/05/18 Time of Evaluation: 09:50 - Subjective Subjective: Comfortable in bed, no fevers, not in distress, no abdominal pain currently, no nausea. Objective - Vital Signs/Intake and Output Vital Signs (last 24 hours): Temp Pulse Resp BP Pulse Ox 98.4 F 97 H 20 118/64 99 08/05/18 06:00 08/05/18 06:00 08/05/18 06:00 08/05/18 06:00 08/05/18 06:00 - Medications Medications: Current Medications Sodium Chloride (Sodium Chloride 0.9%) 1,000 mls @ 80 mls/hr IV .[id number] [facility] Last Admin: 08/04/18 16:49 Dose: 80 mls/hr Aztreonam (Azactam 1 Gm) 100 mls @ 100 mls/hr IVPB Q8 [facility]; Protocol Stop: 08/09/18 22:01 Last Admin: 08/05/18 06:17 Dose: 100 mls/hr Metronidazole (Flagyl) 500 mg in 100 mls @ 100 mls/hr IVPB Q8 [facility]; Protocol Stop: 08/13/18 22:01 Last Admin: 08/05/18 05:09 Dose: 100 mls/hr Vancomycin HCl (Vancomycin 1gm) 1 gm in 250 mls @ 167 mls/hr IVPB Q12H [facility]; Protocol Stop: 08/13/18 15:16 Last Admin: 08/05/18 03:14 Dose: 167 mls/hr Pantoprazole Sodium (Protonix Ec Tab) 40 mg PO 0600 [facility] - Labs Labs: 08/05/18 07:20 08/05/18 07:20 PT 12.9 SECONDS (9.4-12.5) H 08/04/18 07:50 INR 1.14 08/04/18 07:50 APTT 35.6 Seconds (26.9-38.3) 08/04/18 07:50 - Constitutional Appears: Non-toxic, No Acute Distress - Head Exam Head Exam: NORMAL INSPECTION - Respiratory Exam Respiratory Exam: Decreased Breath Sounds - Cardiovascular Exam Cardiovascular Exam: +S1, +S2 - GI/Abdominal Exam GI & Abdominal Exam: Soft. absent: Tenderness Assessment and Plan - Assessment and Plan (Free Text) Plan: Assessment sepsis due to left sided colitis and ascending colitis, R/O diverticulitis, presenting with GI bleeding HTN history of Plan continue Vancomycin, Azactam and Flagyl day 2 follow up GI recommendations discussed with Dr. Chance
--- NOTE | 2018-08-05 14:59 | US ---
Date of service: 08/05/2018 HISTORY: mass COMPARISON: None available. TECHNIQUE: Transabdominal pelvic ultrasound was performed with longitudinal and transverse images submitted for interpretation. FINDINGS: UTERUS: Measures 5.4 x 2.5 x 4.8 cm. Normal in size and appearance. No fibroid or other mass lesion seen. ENDOMETRIUM: Measures 4.0 mm in diameter. Unremarkable. CERVIX: No cervical abnormality identified. RIGHT OVARY: Not identified. No suspicious adnexal mass or fluid collection appreciable. LEFT OVARY: Not identified. No suspicious adnexal mass or fluid collection appreciable. FREE FLUID: No significant free fluid noted. OTHER FINDINGS: None. IMPRESSION: Unremarkable appearing uterus endometrium and cervix as imaged. No definite suspicious adnexal findings although the ovaries not identified either X compartment bilaterally, potentially due to atrophy or surgical absence. Clinically correlate further. Transvaginal study can be utilized if clinically warranted.
[2018-08-05 19:15] LABS: HEMOGLOBIN 8.2 g/dL (12.0-16.0); MEAN CELL VOLUME 77.7 fl (80.0-105.0); MEAN CORPUSCULAR HEMOGLOBIN 25.1 pg (25.0-35.0); MEAN CORPUSCULAR HGB CONC 32.3 g/dl (31.0-37.0); MEAN PLATELET VOLUME 9.6 fl (7.0-11.0); RBC 3.27 10^6/uL (3.5-6.1); RED CELL DISTRIBUTION WIDTH 14.3 % (11.5-14.5); WHITE BLOOD COUNT 9.7 10^3/uL (4.5-11.0)
[2018-08-06] MEDS: Sodium Chloride 0.9% 1,000 ML IV SCH ×2 (01:32→21:19)
[2018-08-06] MEDS: Pantoprazole 40 mg EC Tab PO SCH (05:58)
[2018-08-06] MEDS: metroNIDAZOLE IV 500 mg/100 ml 500 MG/100 ML BAG IVPB SCH ×3 (05:58→21:18)
[2018-08-06] MEDS: Aztreonam 1 Gm in NS 100mL 100 ML IVPB SCH ×3 (05:58→21:18)
[2018-08-06] MEDS: Vancomycin 1gm in NS 250ml 1 GM/250 ML BAG IVPB SCH ×2 (05:59→18:32)
[2018-08-06 08:27] LABS: HEMOGLOBIN 9.3 g/dL (12.0-16.0); MEAN CELL VOLUME 77.6 fl (80.0-105.0); MEAN CORPUSCULAR HEMOGLOBIN 24.5 pg (25.0-35.0); MEAN CORPUSCULAR HGB CONC 31.5 g/dl (31.0-37.0); MEAN PLATELET VOLUME 9.8 fl (7.0-11.0); RBC 3.8 10^6/uL (3.5-6.1); RED CELL DISTRIBUTION WIDTH 14.3 % (11.5-14.5)
[2018-08-06 08:44] LABS: ALB/GLOB RATIO 1.3 (1.1-1.8); ALBUMIN 4.3 g/dL (3.0-4.8); ALT/SGPT 37 U/L (7-56); AST/SGOT 40 U/L (14-36); BLOOD UREA NITROGEN 5 mg/dL (7-21); CALCIUM 9.1 mg/dL (8.4-10.5); GFR NON-AFRICAN AMERICAN > 60
--- NOTE | 2018-08-06 09:27 | CP.PCM.PN ---
Subjective - Date & Time of Evaluation Date of Evaluation: 08/06/18 Time of Evaluation: 09:24 - Subjective Subjective: Resident Progress Note for Surgery: Dr. Villalba Patient examined this morning. No acute events overnight. Patient tolerating liquid diet. Denies abdominal pain. States she is feeling better overall. Objective - Vital Signs/Intake and Output Vital Signs (last 24 hours): Temp Pulse Resp BP Pulse Ox 98.3 F 92 H 18 140/77 97 08/06/18 06:00 08/06/18 06:00 08/06/18 06:00 08/06/18 06:00 08/06/18 06:00 Intake and Output: 08/06/18 08/06/18 06:59 18:59 Intake Total 240 Balance 240 - Medications Medications: Current Medications Sodium Chloride (Sodium Chloride 0.9%) 1,000 mls @ 80 mls/hr IV .[id number] [facility] Last Admin: 08/06/18 01:32 Dose: 80 mls/hr Aztreonam (Azactam 1 Gm) 100 mls @ 100 mls/hr IVPB Q8 [facility]; Protocol Stop: 08/09/18 22:01 Last Admin: 08/06/18 05:58 Dose: 100 mls/hr Metronidazole (Flagyl) 500 mg in 100 mls @ 100 mls/hr IVPB Q8 [facility]; Protocol Stop: 08/13/18 22:01 Last Admin: 08/06/18 05:58 Dose: 100 mls/hr Vancomycin HCl (Vancomycin 1gm) 1 gm in 250 mls @ 167 mls/hr IVPB Q12H [facility]; Protocol Stop: 08/13/18 18:01 Last Admin: 08/06/18 05:59 Dose: 167 mls/hr Pantoprazole Sodium (Protonix Ec Tab) 40 mg PO 0600 [facility] Last Admin: 08/06/18 05:58 Dose: 40 mg - Labs Labs: 08/06/18 06:20 08/06/18 06:20 PT 12.9 SECONDS (9.4-12.5) H 08/04/18 07:50 INR 1.14 08/04/18 07:50 APTT 35.6 Seconds (26.9-38.3) 08/04/18 07:50 - Additional Findings Additional findings: - Constitutional Appears: No Acute Distress - Head Exam Head Exam: ATRAUMATIC, NORMOCEPHALIC - Eye Exam Eye Exam: EOMI, Normal appearance - ENT Exam ENT Exam: Mucous Membranes Moist, Normal Exam - Respiratory Exam Respiratory Exam: NORMAL BREATHING PATTERN. absent: Respiratory Distress, Accessory Muscle Use - Cardiovascular Exam Cardiovascular Exam: REGULAR RHYTHM - GI/Abdominal Exam GI & Abdominal Exam: Soft, Bowel Sounds. absent: Distended, Firm, Guarding, Hernia, Rigid - Extremities Exam Extremities exam: Positive for: normal inspection - Neurological Exam Neurological exam: Alert, Oriented x3 - Skin Skin Exam: Dry, Intact, Normal Color, Warm Assessment and Plan - Assessment and Plan (Free Text) Assessment: Patient is a 58 year old female with past medical history HTN admitted for workup and management of GI bleed, found to have colitis. Plan: - CT abd/pelvis shows inflammatory changes and wall thickening in proximal ascending colon - afebrile, leukocytosis resolved - 08/04 blood cultures negative x2 - continue IVF and antibiotics - liquid diet - further management per primary team - further recommendations per Dr. Deejay Palomino PGY-1
--- NOTE | 2018-08-06 11:01 | CP.PCM.PN ---
<Pepe Pan - Last Filed: 08/06/18 11:01> Subjective - Date & Time of Evaluation Date of Evaluation: 08/06/18 Time of Evaluation: 08:30 - Subjective Subjective: PGY-4 GI Fellow Prog Note Pt sitting up eating breakfast when seen this AM. States that she is doing well and tolerating liq diet without issue. Reports 4-5 loose stools over last 24 hrs without any blood in it. 5 point ROS negative other than stated above Objective - Vital Signs/Intake and Output Vital Signs (last 24 hours): Temp Pulse Resp BP Pulse Ox 98.3 F 92 H 18 140/77 97 08/06/18 06:00 08/06/18 06:00 08/06/18 06:00 08/06/18 06:00 08/06/18 06:00 Intake and Output: 08/06/18 08/06/18 06:59 18:59 Intake Total 240 Balance 240 - Medications Medications: Current Medications Sodium Chloride (Sodium Chloride 0.9%) 1,000 mls @ 80 mls/hr IV .[id number] [facility] Last Admin: 08/06/18 01:32 Dose: 80 mls/hr Aztreonam (Azactam 1 Gm) 100 mls @ 100 mls/hr IVPB Q8 [facility]; Protocol Stop: 08/09/18 22:01 Last Admin: 08/06/18 05:58 Dose: 100 mls/hr Metronidazole (Flagyl) 500 mg in 100 mls @ 100 mls/hr IVPB Q8 [facility]; Protocol Stop: 08/13/18 22:01 Last Admin: 08/06/18 05:58 Dose: 100 mls/hr Vancomycin HCl (Vancomycin 1gm) 1 gm in 250 mls @ 167 mls/hr IVPB Q12H [facility]; Protocol Stop: 08/13/18 18:01 Last Admin: 08/06/18 05:59 Dose: 167 mls/hr Potassium Chloride (Potassium Chloride 10 Meq/100 Ml) 10 meq in 100 mls @ 50 mls/hr IVPB Q2H [facility] Stop: 08/06/18 13:44 Last Admin: 08/06/18 10:10 Dose: 50 mls/hr Pantoprazole Sodium (Protonix Ec Tab) 40 mg PO 0600 [facility] Last Admin: 08/06/18 05:58 Dose: 40 mg - Labs Labs: 08/06/18 06:20 08/06/18 06:20 PT 12.9 SECONDS (9.4-12.5) H 08/04/18 07:50 INR 1.14 08/04/18 07:50 APTT 35.6 Seconds (26.9-38.3) 08/04/18 07:50 - Constitutional Appears: Well, No Acute Distress - Head Exam Head Exam: ATRAUMATIC, NORMAL INSPECTION - Eye Exam Eye Exam: EOMI. absent: Scleral icterus - ENT Exam ENT Exam: Mucous Membranes Moist. absent: Mucous Membranes Dry - Respiratory Exam Respiratory Exam: NORMAL BREATHING PATTERN. absent: Accessory Muscle Use, Respiratory Distress - GI/Abdominal Exam GI & Abdominal Exam: Soft, Normal Bowel Sounds. absent: Bruit, Distended, Firm, Guarding, Rigid, Tenderness, Mass, Organomegaly, Pulsatile Mass, Rebound Assessment and Plan - Assessment and Plan (Free Text) Assessment: 58 yo F presenting with hematochezia. # Hematochezia: Relatively painless. Signs of Colitis on CT raising concerns for infectious/inflammatory etiology. Also with diverticulosis, possible diverticulitis with microperforations. Repeat Hgb this AM decreased from baseline, but suspect dilution component as well as some blood loss. # Endos: EGD some 10+ years ago for abd pain eval which was normal per her report; no prior Colonoscopy. Plan: - Adv diet to low residue, heart healthy - Abx per Primary/ID - Gen Surg consulted - Consider stopping PPI - Cdiff and Stool Cx, pending - Will need Colonoscopy in 6-8 weeks - OK to DC from GI standpoint with course of PO Abx with close outpatient follow-up Pt discussed with Dr. Saha; please see attestation for further recs/changes <Ezra Saha - Last Filed: 08/06/18 12:33> Objective - Vital Signs/Intake and Output Vital Signs (last 24 hours): Temp Pulse Resp BP Pulse Ox 98.3 F 92 H 18 140/77 97 08/06/18 06:00 08/06/18 06:00 08/06/18 06:00 08/06/18 06:00 08/06/18 06:00 Intake and Output: 08/06/18 08/06/18 06:59 18:59 Intake Total 240 Balance 240 - Medications Medications: Current Medications Sodium Chloride (Sodium Chloride 0.9%) 1,000 mls @ 80 mls/hr IV .[id number] [facility] Last Admin: 08/06/18 01:32 Dose: 80 mls/hr Aztreonam (Azactam 1 Gm) 100 mls @ 100 mls/hr IVPB Q8 [facility]; Protocol Stop: 08/09/18 22:01 Last Admin: 08/06/18 05:58 Dose: 100 mls/hr Metronidazole (Flagyl) 500 mg in 100 mls @ 100 mls/hr IVPB Q8 [facility]; Protocol Stop: 08/13/18 22:01 Last Admin: 08/06/18 05:58 Dose: 100 mls/hr Vancomycin HCl (Vancomycin 1gm) 1 gm in 250 mls @ 167 mls/hr IVPB Q12H [facility]; Protocol Stop: 08/13/18 18:01 Last Admin: 08/06/18 05:59 Dose: 167 mls/hr Potassium Chloride (Potassium Chloride 10 Meq/100 Ml) 10 meq in 100 mls @ 50 mls/hr IVPB Q2H [facility] Stop: 08/06/18 13:44 Last Admin: 08/06/18 10:10 Dose: 50 mls/hr Pantoprazole Sodium (Protonix Ec Tab) 40 mg PO 0600 [facility] Last Admin: 08/06/18 05:58 Dose: 40 mg - Labs Labs: 08/06/18 06:20 08/06/18 06:20 PT 12.9 SECONDS (9.4-12.5) H 08/04/18 07:50 INR 1.14 08/04/18 07:50 APTT 35.6 Seconds (26.9-38.3) 08/04/18 07:50 Attending/Attestation - Attestation I have fully participated in the care of the patient.: Yes I have reviewed all pertinent clinical information, including history, physical exam and plan: Yes Notes (Text): 08/06/18 12:32 Rectal bleeding - resolved Colitis - Advance diet as tolerated - Continue with antibiotic therapy - Awaiting stool study results - From GI standpoint if patient tolerating PO diet, ok to discharge home with subsequent outpatient follow up and colonoscopy within 6-8 weeks. Office contact information provided to patient, discussed with Dr. Chance.
--- NOTE | 2018-08-06 11:02 | CP.PCM.PN ---
Subjective - Date & Time of Evaluation Date of Evaluation: 08/06/18 Time of Evaluation: 08:35 - Subjective Subjective: Comfortable, no fevers, less abdominal pain, has some loose stools. Objective - Vital Signs/Intake and Output Vital Signs (last 24 hours): Temp Pulse Resp BP Pulse Ox 98.4 F 97 H 20 118/64 99 08/05/18 06:00 08/05/18 06:00 08/05/18 06:00 08/05/18 06:00 08/05/18 06:00 - Medications Medications: Current Medications Sodium Chloride (Sodium Chloride 0.9%) 1,000 mls @ 80 mls/hr IV .[id number] AUBREY Last Admin: 08/04/18 16:49 Dose: 80 mls/hr Aztreonam (Azactam 1 Gm) 100 mls @ 100 mls/hr IVPB Q8 AUBREY; Protocol Stop: 08/09/18 22:01 Last Admin: 08/05/18 06:17 Dose: 100 mls/hr Metronidazole (Flagyl) 500 mg in 100 mls @ 100 mls/hr IVPB Q8 AUBREY; Protocol Stop: 08/13/18 22:01 Last Admin: 08/05/18 05:09 Dose: 100 mls/hr Vancomycin HCl (Vancomycin 1gm) 1 gm in 250 mls @ 167 mls/hr IVPB Q12H AUBREY; Protocol Stop: 08/13/18 15:16 Last Admin: 08/05/18 03:14 Dose: 167 mls/hr Pantoprazole Sodium (Protonix Ec Tab) 40 mg PO 0600 [facility] - Labs Labs: 08/05/18 07:20 08/05/18 07:20 PT 12.9 SECONDS (9.4-12.5) H 08/04/18 07:50 INR 1.14 08/04/18 07:50 APTT 35.6 Seconds (26.9-38.3) 08/04/18 07:50 - Constitutional Appears: No Acute Distress, Chronically Ill - Head Exam Head Exam: NORMAL INSPECTION - Respiratory Exam Respiratory Exam: Decreased Breath Sounds. absent: Rales - Cardiovascular Exam Cardiovascular Exam: +S1, +S2 - GI/Abdominal Exam GI & Abdominal Exam: Soft. absent: Tenderness Assessment and Plan - Assessment and Plan (Free Text) Plan: Assessment sepsis due to left sided colitis and ascending colitis, R/O diverticulitis, presenting with GI bleeding HTN history of Plan continue Vancomycin, Azactam and Flagyl day 3 follow up further GI recommendations discussed with Dr. Chance will monitor advancement of diet follow up stool studies
--- NOTE | 2018-08-06 11:14 | CP.PCM.PN ---
Subjective - Date & Time of Evaluation Date of Evaluation: 08/05/18 Time of Evaluation: 07:00 - Subjective Subjective: Surgery Progress Note: Dr. Villalba Patient examined at bedside. No acute events overnight. Patient is resting comfortably in no acute distress. Patient denies nausea, vomiting, abdominal pain. Objective - Vital Signs/Intake and Output Vital Signs (last 24 hours): Temp Pulse Resp BP Pulse Ox 98.3 F 92 H 18 140/77 97 08/06/18 06:00 08/06/18 06:00 08/06/18 06:00 08/06/18 06:00 08/06/18 06:00 Intake and Output: 08/06/18 08/06/18 06:59 18:59 Intake Total 240 Balance 240 - Medications Medications: Current Medications Sodium Chloride (Sodium Chloride 0.9%) 1,000 mls @ 80 mls/hr IV .[id number] AUBREY Last Admin: 08/06/18 01:32 Dose: 80 mls/hr Aztreonam (Azactam 1 Gm) 100 mls @ 100 mls/hr IVPB Q8 AUBREY; Protocol Stop: 08/09/18 22:01 Last Admin: 08/06/18 05:58 Dose: 100 mls/hr Metronidazole (Flagyl) 500 mg in 100 mls @ 100 mls/hr IVPB Q8 AUBREY; Protocol Stop: 08/13/18 22:01 Last Admin: 08/06/18 05:58 Dose: 100 mls/hr Vancomycin HCl (Vancomycin 1gm) 1 gm in 250 mls @ 167 mls/hr IVPB Q12H AUBREY; Protocol Stop: 08/13/18 18:01 Last Admin: 08/06/18 05:59 Dose: 167 mls/hr Potassium Chloride (Potassium Chloride 10 Meq/100 Ml) 10 meq in 100 mls @ 50 ml s/hr IVPB Q2H AUBREY Stop: 08/06/18 13:44 Last Admin: 08/06/18 10:10 Dose: 50 mls/hr Pantoprazole Sodium (Protonix Ec Tab) 40 mg PO 0600 AUBREY Last Admin: 08/06/18 05:58 Dose: 40 mg - Labs Labs: 08/06/18 06:20 08/06/18 06:20 PT 12.9 SECONDS (9.4-12.5) H 08/04/18 07:50 INR 1.14 08/04/18 07:50 APTT 35.6 Seconds (26.9-38.3) 08/04/18 07:50 - Additional Findings Additional findings: - Constitutional Appears: No Acute Distress - Head Exam Head Exam: ATRAUMATIC, NORMOCEPHALIC - Eye Exam Eye Exam: EOMI, Normal appearance - ENT Exam ENT Exam: Mucous Membranes Moist, Normal Exam - Respiratory Exam Respiratory Exam: NORMAL BREATHING PATTERN. absent: Respiratory Distress, Accessory Muscle Use - Cardiovascular Exam Cardiovascular Exam: REGULAR RHYTHM - GI/Abdominal Exam GI & Abdominal Exam: Soft, Bowel Sounds. absent: Distended, Firm, Guarding, Hernia, Rigid, Tenderness - Extremities Exam Extremities exam: Positive for: normal inspection - Neurological Exam Neurological exam: Alert, Oriented x3 - Skin Skin Exam: Dry, Intact, Normal Color, Warm Assessment and Plan - Assessment and Plan (Free Text) Assessment: 58 yo F with colitis v diverticulitis Plan: -CT: R colon colitis w diverticulosis -advance diet as tolerated -IVF-PTX -ABX -Pain control -f/u GI recs Pt seen w and case DW Dr. Villalba
--- NOTE | 2018-08-06 11:14 | PN ---
DATE: 08/06/2018 SUBJECTIVE: She is sitting out of bed to chair. She is upset with her room. She wants her room switched. She is eating fluids okay. She is being seen by Surgery, Infectious Disease and GI. She wants to go home today. She is only on clear fluids. PHYSICAL EXAMINATION: VITAL SIGNS: Temperature 98.3, 92 pulse, 140/77 blood pressure, 18 respiratory rate, 97% O2 sat on room air. HEAD: Atraumatic, normocephalic. HEART: Regular rate. LUNGS: Decreased breath sounds but clear. ABDOMEN: Soft. Positive bowel sounds. EXTREMITIES: No edema. MEDICATIONS: She is on Azactam, Flagyl, Protonix, IV fluids and vancomycin. She is on a lot of antibiotics. LABORATORY DATA: She has a 7 white count, 9.3 hemoglobin, 29.5 hematocrit with 328 platelets. She has a 141 sodium, potassium 3.1, I gave her two K-riders, BUN 5, creatinine 0.6, GFR is greater than 60, sugar is 102, calcium is 9.1, total bili is 0.5, AST is 40, ALT is 37, alk phos is 80, total protein 7.5. PLAN: The ultrasounds of her abdomen and pelvis were pretty good. If they increase her diet and she eats well and it is okay with Infectious Disease as well as antibiotics, then possibly in the next 24 hours I could see her being discharged. I do not think today is the right day, although she wants to leave today. She is here with colitis, diverticulitis, possible perforation, low potassium, sepsis, GI bleed picture. Tamir Chance DO
--- NOTE | 2018-08-06 16:49 | PN ---
DATE: 08/06/2018 SUBJECTIVE: Christy Valentine is seen. The pain is mostly resolved. There is a little bit of bleeding noted in the feces, but she has no pain and the diarrhea has slowed down. The microbiology is not back. C difficile is negative, but cultures are not back. I believe this is infectious, it could be inflammatory, at some point needs a colonoscopy. We will continue the antibiotics until that time. Rafael Villalba MD
[2018-08-06 23:15] VITALS: TEMP 98.1
[2018-08-07] MEDS: metroNIDAZOLE IV 500 mg/100 ml 500 MG/100 ML BAG IVPB SCH (05:41)
[2018-08-07] MEDS: Aztreonam 1 Gm in NS 100mL 100 ML IVPB SCH (05:41)
[2018-08-07] MEDS: Vancomycin 1gm in NS 250ml 1 GM/250 ML BAG IVPB SCH (05:42)
[2018-08-07] MEDS: Pantoprazole 40 mg EC Tab PO SCH (05:42)
[2018-08-07 07:38] LABS: HEMOGLOBIN 9.6 g/dL (12.0-16.0); MEAN CELL VOLUME 77.7 fl (80.0-105.0); MEAN CORPUSCULAR HEMOGLOBIN 24.9 pg (25.0-35.0); MEAN CORPUSCULAR HGB CONC 32.1 g/dl (31.0-37.0); MEAN PLATELET VOLUME 9.6 fl (7.0-11.0); RBC 3.85 10^6/uL (3.5-6.1); RED CELL DISTRIBUTION WIDTH 14.7 % (11.5-14.5); WHITE BLOOD COUNT 7.7 10^3/uL (4.5-11.0)
[2018-08-07 08:04] LABS: ALB/GLOB RATIO 1.4 (1.1-1.8); ALBUMIN 4.3 g/dL (3.0-4.8); ALT/SGPT 44 U/L (7-56); AST/SGOT 78 U/L (14-36); BLOOD UREA NITROGEN 3 mg/dL (7-21); CALCIUM 9.1 mg/dL (8.4-10.5); GFR NON-AFRICAN AMERICAN > 60
[2018-08-07 08:45] VITALS: PULSE 97; RESP 20; O2SAT 98
[2018-08-07] MEDS ORDERED: Potassium Chloride 40 mEq/30 ml LIQ UD PO ONE (10:29)
[2018-08-07 11:55] VITALS: BP 136/86
--- NOTE | 2018-08-07 14:14 | CP.PCM.PN ---
Subjective - Date & Time of Evaluation Date of Evaluation: 08/07/18 Time of Evaluation: 10:35 - Subjective Subjective: No fevers, tolerating PO intake, no abdominal pain currently, no diarrhea. Feeling better. Objective - Vital Signs/Intake and Output Vital Signs (last 24 hours): Temp Pulse Resp BP Pulse Ox 98.3 F 92 H 18 140/77 97 08/06/18 06:00 08/06/18 06:00 08/06/18 06:00 08/06/18 06:00 08/06/18 06:00 Intake and Output: 08/06/18 08/06/18 06:59 18:59 Intake Total 240 Balance 240 - Medications Medications: Current Medications Sodium Chloride (Sodium Chloride 0.9%) 1,000 mls @ 80 mls/hr IV .[id number] AUBREY Last Admin: 08/06/18 01:32 Dose: 80 mls/hr Aztreonam (Azactam 1 Gm) 100 mls @ 100 mls/hr IVPB Q8 AUBREY; Protocol Stop: 08/09/18 22:01 Last Admin: 08/06/18 05:58 Dose: 100 mls/hr Metronidazole (Flagyl) 500 mg in 100 mls @ 100 mls/hr IVPB Q8 AUBREY; Protocol Stop: 08/13/18 22:01 Last Admin: 08/06/18 05:58 Dose: 100 mls/hr Vancomycin HCl (Vancomycin 1gm) 1 gm in 250 mls @ 167 mls/hr IVPB Q12H AUBREY; Protocol Stop: 08/13/18 18:01 Last Admin: 08/06/18 05:59 Dose: 167 mls/hr Potassium Chloride (Potassium Chloride 10 Meq/100 Ml) 10 meq in 100 mls @ 50 mls/hr IVPB Q2H AUBREY Stop: 08/06/18 13:44 Last Admin: 08/06/18 10:10 Dose: 50 mls/hr Pantoprazole Sodium (Protonix Ec Tab) 40 mg PO 0600 AUBREY Last Admin: 08/06/18 05:58 Dose: 40 mg - Labs Labs: 08/06/18 06:20 08/06/18 06:20 PT 12.9 SECONDS (9.4-12.5) H 08/04/18 07:50 INR 1.14 08/04/18 07:50 APTT 35.6 Seconds (26.9-38.3) 08/04/18 07:50 - Constitutional Appears: Chronically Ill - Head Exam Head Exam: NORMAL INSPECTION - Neck Exam Neck Exam: absent: Meningismus - Respiratory Exam Respiratory Exam: Decreased Breath Sounds - Cardiovascular Exam Cardiovascular Exam: +S1, +S2 - GI/Abdominal Exam GI & Abdominal Exam: Soft. absent: Tenderness Assessment and Plan - Assessment and Plan (Free Text) Plan: Assessment sepsis due to left sided colitis and ascending colitis, R/O diverticulitis, presenting with GI bleeding HTN history of Plan on Vancomycin, Azactam and Flagyl day 4 - now that she is tolerating PO intake, can switch to PO Ciprofloxacin and Flagyl for another 3-4 days with outpatient follow up with PMD and GI - discussed with Dr. Chance
--- NOTE | 2018-08-08 00:15 | DS ---
SUBJECTIVE: She is eating well. She is feeling better. No abdominal pain or chest pain or shortness of breath. She was on aztreonam, metronidazole, Norvasc, potassium replacement, IV fluids and vancomycin. I discussed with the Infectious Disease doctor. She can be discharged today on Flagyl, Cipro for 5 days. We are going to continue the Norvasc. OBJECTIVE: VITAL SIGNS; She has a 98.1 temp, 97 pulse, 142/84 blood pressure, 20 respiratory rate, 98% O2 sat on room air. HEAD: Atraumatic, normocephalic. HEART: Regular rate. LUNGS: Clear to auscultation. ABDOMEN: Soft, nontender. Positive bowel sounds. EXTREMITIES: No edema. She has a normal exam. She has a nonreactive HIV. LABORATORY DATA: She has 7.7 white count, 9.6 hemoglobin, 29.9 hematocrit with 353 platelets. INR is 1.14. She has 142 sodium, potassium 3.2, I gave her 2 K-riders today of potassium; BUN of 3, creatinine 0.5, GFR is greater than 60, sugar is 109, calcium is 9.1, total bili is 0.3. AST is 78, ALT is 44, alk phos 79, total protein 7.3. ASSESSMENT AND PLAN: She was seen by Surgery and Gastroenterology and Infectious Disease, and all said she can be discharged. She is eating well. She will follow up with the primary care doctor in the next week. She is here for diverticulitis. Tamir Chance DO
== END 2018-08-07 15:30 | disposition home or self-care (01) | DRG 872 ==
LOC: ED 06:59 → ERH 12:01 → 5RSO 14:58
PROVIDERS: ADMIT Family Medicine; ATTEND Family Medicine
DX: A41.9 Sepsis, unspecified organism (principal); K51.50 Left sided colitis without complications; K57.32 Diverticulitis of large intestine without perforation or abscess without bleeding; I10 Essential (primary) hypertension; Z79.899 Other long term (current) drug therapy; Z87.891 Personal history of nicotine dependence; Z88.0 Allergy status to penicillin